=== PATIENT | male | born 1960 | race Caucasian/White ===

== ENCOUNTER → 2025-01-31 23:59 | Outpatient (BNV) | payer MEDICARE, SELFPAY | PROVIDERS: Visit Provider Internal Medicine Cardiovascular Disease | DX: I21.4 Non-ST elevation (NSTEMI) myocardial infarction (principal) | CPT/HCPCS: 92941; 93458; 99152 ==

== ENCOUNTER 2025-03-13 14:00 | Outpatient (AMB) | payer MEDICARE, SELFPAY ==
--- NOTE | 2025-03-13 14:39 | MHC.OFFVIS ---
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 He was seen during STEMI call when he presented with anterior wall AL and received TNK at [facility]. Subsequently was taken for cardiac catheterization in the next day and had plaque rupture in the mid LAD which was treated with drug-eluting stent. He has done well since then. He is on aspirin and ticagrelor. No bleeding concerns. He has no exertional symptoms. Blood pressure well controlled. He is doing cardiac rehabilitation at [place]. COUNT INCLUDES THE [facility] Medical History (Updated 03/13/25 @ 16:51 by Josh Roberto MD) Hyperlipidemia STEMI (ST elevation myocardial infarction) Surgical History (Updated 03/13/25 @ 16:51 by Josh Roberto MD) Hx of cardiac cath Family History (Updated 03/13/25 @ 14:47 by Amy Chan CMA) Mother Pacemaker Father Stented coronary artery Social History (Updated 03/13/25 @ 14:48 by Amy Chan CMA) Alcohol intake: current Alcohol intake frequency: holidays/special occasions only Alcohol type: beer Patient Tobacco Use Status: Never used Tobacco Review of Systems Const Denies chills, Denies fatigue, Denies fever(s), Denies frequent falls, Denies weakness, Denies weight gain and Denies weight loss ENT Denies dizziness Card Denies chest pain, Denies leg edema, Denies lightheadedness, Denies palpitations, Denies dyspnea and Denies dyspnea on exertion Resp Denies cough, Denies dyspnea and Denies dyspnea on exertion GI Denies hematochezia Musc Denies abnormal gait, Denies muscle weakness, Denies numbness, Denies radiating pain into limb and Denies tingling Neuro Denies abnormal gait, Denies dizziness, Denies frequent falls, Denies numbness, Denies tingling and Denies weakness Endo Denies fatigue and Denies palpitations Physical Exam Vital Signs: Last Vital Signs Pulse 59 03/13/25 14:40 BP 110/64 03/13/25 14:40 BMI result Body Mass Index 29.6 GENERAL APPEARANCE: in no acute distress, pleasant. NECK: no carotid bruit, no jugular venous distention. SKIN: no suspicious lesions, warm and dry. HEART: no murmurs, regular rate and rhythm. LUNGS: clear to auscultation bilaterally. ABDOMEN: soft, nontender. EXTREMITIES: no edema. PERIPHERAL PULSES: equal. NEUROLOGIC: No gross deficits, AAO X 3 Office Procedures EKG Details: Sinus bradycardia 59 beats per minute, normal axis, cannot rule out anterior infarct, QTc 397 msec. [id number], Complete Assessment & Plan Assessment & Plan (1) Anterior wall myocardial infarction: Code(s): I21.09 - ST elevation (STEMI) myocardial infarction involving other coronary artery of anterior wall Category: Medical (2) Status post percutaneous transluminal coronary angioplasty: Code(s): Z98.61 - Coronary angioplasty status Category: Medical Plan Pleasant 65 year gentleman who is here for follow-up. He was seen during STEMI call at [facility] when he presented with anterior wall AL and received TNK at [facility]. He had good reperfusion and subsequently was taken for cardiac catheterization and underwent PCI to mid LAD with drug-eluting stent. He has done well since then. He is on aspirin and Brilinta. I have advised him that he should continue both for 1 year. Blood pressure well controlled. He is doing cardiac rehabilitation at [facility]. He will see us back in 4 months. Thank you for allowing me to participate in the care of your patient. Please feel free to contact me if you have any questions. Coding Level of Care Code Est Pt Level 4 (34325) Diagnoses Anterior wall myocardial infarction I21.09 Status post percutaneous transluminal coronary angioplasty Z98.61 CPT Codes EKG - CPT: 22813-[id number], Complete ([id number])
[2025-03-13 14:40] VITALS: BP 110/64; PULSE 59; BMI 29.6
== END 2025-03-13 15:13 | disposition home or self-care (01) ==
LOC: HO.HCS 14:01
PROVIDERS: Visit Provider Internal Medicine Cardiovascular Disease
DX: I21.09 ST elevation (STEMI) myocardial infarction involving other coronary artery of anterior wall (principal); Z98.61 Coronary angioplasty status
CPT/HCPCS: 93010; 99214

== ENCOUNTER → 2025-03-13 14:00 | Outpatient (BNVA) | payer MEDICARE, SELFPAY | PROVIDERS: Visit Provider Internal Medicine Cardiovascular Disease | DX: I21.09 ST elevation (STEMI) myocardial infarction involving other coronary artery of anterior wall (principal); Z98.61 Coronary angioplasty status; Z79.82 Long term (current) use of aspirin; Z79.01 Long term (current) use of anticoagulants; E78.5 Hyperlipidemia, unspecified | CPT/HCPCS: 93005; 99212 ==